=== PATIENT | male | born 1975 | race Caucasian/White ===

== ENCOUNTER 2023-08-08 16:50 | Emergency (ER) | payer MEDICAID ==
[~2023-08-08] VITALS: Ht 182.9 cm; Wt 95.5 kg
[~2023-08-08 16:50] MED LIST: CIP500T PO; HYDR1TAB PO; NAPR-56 PO; NO HOME MEDS
[2023-08-08 17:15] VITALS: BP 129/77; PULSE 80; RESP 18; TEMP 98.5; O2SAT 99
[2023-08-08] MEDS ORDERED: ketorolac trometh inj. 60 MG/2 ML VIAL IM ONE (18:15)
[2023-08-08] MEDS ORDERED: IBUP-1984 PO (19:39)
== END 2023-08-08 20:05 | disposition home or self-care (01) ==
LOC: ER 16:50
DX: J11.1 Influenza due to unidentified influenza virus with other respiratory manifestations (principal); Z20.822 Contact with and (suspected) exposure to COVID-19; R11.10 Vomiting, unspecified; R19.7 Diarrhea, unspecified; F15.90 Other stimulant use, unspecified, uncomplicated; Z72.89 Other problems related to lifestyle; Z79.2 Long term (current) use of antibiotics; Z79.899 Other long term (current) drug therapy
CPT/HCPCS: 36415; 71045; 87502; 87503; 87811; 96372; 99284; J1885

== ENCOUNTER 2023-09-13 14:57 | Emergency (ER) | payer MEDICAID ==
[~2023-09-13] VITALS: Ht 185.4 cm; Wt 93.5 kg
[2023-09-13 15:03] VITALS: BP 156/109; PULSE 60; RESP 18; TEMP 97.5; O2SAT 98
[2023-09-13] MEDS ORDERED: BUPR1FIL5 SL (17:22)
== END 2023-09-13 17:33 | disposition home or self-care (01) ==
LOC: ER 14:57
DX: Z76.0 Encounter for issue of repeat prescription (principal); Z91.148 Patient's other noncompliance with medication regimen for other reason; F15.90 Other stimulant use, unspecified, uncomplicated; Z72.89 Other problems related to lifestyle; Z79.2 Long term (current) use of antibiotics; Z79.899 Other long term (current) drug therapy
CPT/HCPCS: 99281